=== PATIENT | male | born 1975 | race Caucasian/White ===

== ENCOUNTER 2017-10-09 14:17 | Emergency (ER) | payer BC ==
[~2017-10-09] VITALS: Ht 172.7 cm; Wt 82.7 kg
[2017-10-09] MEDS ORDERED: SIMV-259 PO (14:27)
[2017-10-09] MEDS ORDERED: IBUPROFEN 800 MG TABLET PO ONE (16:15)
[2017-10-09] MEDS ORDERED: SODIUM CHLORIDE 0.9% 1,000 ML IV ONE (16:15)
[2017-10-09] MEDS ORDERED: ONDANSETRON HCL 4 MG/2 ML VIAL IVP ONE (16:15)
[2017-10-09 16:29] VITALS: BP 126/82
[2017-10-09 17:09] LABS: INFLUENZA TYPE A POSITIVE FOR TYPE A (NEGATIVE); INFLUENZA TYPE B NEGATIVE FOR TYPE B (NEGATIVE)
== END 2017-10-09 17:27 | disposition home or self-care (01) ==
LOC: EMS 14:19
DX: J11.1 Influenza due to unidentified influenza virus with other respiratory manifestations (principal); E78.5 Hyperlipidemia, unspecified
CPT/HCPCS: 87804; 96361; 96374; 99284; J2405; J7030